=== PATIENT | female | born 1970 | race Caucasian/White ===

== ENCOUNTER 2017-03-28 09:02 | Emergency (ER) | payer MEDICAID, OTHER, SELFPAY ==
[2017-03-28 09:21] VITALS: BP 116/73; TEMP 98.9
[2017-03-28] MEDS ORDERED: Dexamethasone 4 mg/1 ml ONE (09:47)
[2017-03-28 09:57] VITALS: PULSE 85; RESP 18; O2SAT 98
--- NOTE | 2017-03-28 10:12 | C.PDOC ---
History Of Present Illness 47 yr old female presents to the ER with complaints of an allergic reaction for the past 2 days. Patient reports of a itchy rash all over her body. Denies any new environmental exposures, fever, chest pain, SOB, headache, weakness or numbness. Time Seen by Provider: 03/28/17 09:45 Chief Complaint (Nursing): Abnormal Skin Integrity History Per: Patient History/Exam Limitations: no limitations Onset/Duration Of Symptoms: Days (2) Past Medical History Reviewed: Historical Data, Nursing Documentation, Vital Signs Vital Signs: Last Vital Signs Temp 98.9 F 03/28/17 09:18 Pulse 85 03/28/17 09:55 Resp 18 03/28/17 09:55 BP 116/73 03/28/17 09:18 Pulse Ox 98 03/28/17 10:41 Family History: States: No Known Family Hx - Social History Hx Alcohol Use: No Hx Substance Use: No - Immunization History Hx Tetanus Toxoid Vaccination: No Hx Influenza Vaccination: No Hx Pneumococcal Vaccination: No Review Of Systems Except As Marked, All Systems Reviewed And Found Negative. Constitutional: Negative for: Fever Cardiovascular: Negative for: Chest Pain Respiratory: Negative for: Shortness of Breath Skin: Positive for: Rash (Itchy rash all over the body ) Neurological: Negative for: Weakness, Numbness, Headache Physical Exam - Physical Exam Appears: Non-toxic, No Acute Distress Skin: Warm, Dry, Rash (Diffuse urtecaria. ) Head: Atraumatic, Normacephalic Eye(s): bilateral: Normal Inspection, PERRL, EOMI Oral Mucosa: Moist Throat: Normal, No Erythema, No Exudate, No Drooling Chest: Symmetrical, No Tenderness Cardiovascular: Rhythm Regular, No Murmur Respiratory: Normal Breath Sounds, No Rales, No Rhonchi, No Stridor, No Wheezing Extremity: Normal ROM, No Swelling Neurological/Psych: Oriented x3, Normal Speech, Normal Motor ED Course And Treatment O2 Sat by Pulse Oximetry: 98 Medical Decision Making Medical Decision Making: PLAN: * Decadron IM Disposition - Disposition Referrals: Nahun Otero, [Non-Staff] - Disposition: HOME/ ROUTINE Disposition Time: 09:45 Condition: GOOD Additional Instructions: Thank you for letting us take care of you today. Your provider was Dr. Moore. You were treated for a allergic reaction. The emergency medical care you received today was directed at your acute symptoms. If you were prescribed any medication, please fill it and take as directed. It may take several days for your symptoms to resolve. Return to the Emergency Department if your symptoms worsen, do not improve, or if you have any other problems. Please contact your doctor or call one of the physicians/clinics you have been referred to that are listed on the Patient Visit Information form that is included in your discharge packet. Bring any paperwork you were given at discharge with you along with any medications you are taking to your follow up visit. Our treatment cannot replace ongoing medical care by a primary care provider (PCP) outside of the emergency department. Thank you for allowing the [facility] team to be part of your care today. Follow up with your primary doctor in 2-3 days for re-evaluation. Prescriptions: predniSONE [Prednisone] 40 mg PO DAILY #10 tab Instructions: General Allergic Reaction (ED) Forms: Gen Discharge Inst Tajik Print Language: VIETNAMESE - Clinical Impression Clinical Impression: Urticaria - Scribe Statement The provider has reviewed the documentation as recorded by the Gurmeet Hampton Provider Attestation: All medical record entries made by the Gurmeet were at my direction and personally dictated by me. I have reviewed the chart and agree that the record accurately reflects my personal performance of the history, physical exam, medical decision making, and the department course for this patient. I have also personally directed, reviewed, and agree with the discharge instructions and disposition.
== END 2017-03-28 09:58 | disposition home or self-care (01) ==
LOC: C.ER 09:02
DX: L50.9 Urticaria, unspecified (principal)
CPT/HCPCS: 96372; 99283; J1100

== ENCOUNTER 2017-04-01 07:33 | Emergency (ER) | payer OTHER ==
[2017-04-01] MEDS ORDERED: DiphenhydrAMINE 50 mg/ml Inj IVP STA (08:08)
[2017-04-01] MEDS ORDERED: MethylPREDNISolone 40 mg Vial IVP STA (08:08)
[2017-04-01] MEDS ORDERED: Sodium Chloride 0.9% 1,000 ML IV ONE (08:09)
[2017-04-01] MEDS ORDERED: DiphenhydrAMINE 50 mg/ml Inj ONE (08:26)
[2017-04-01] MEDS ORDERED: Sodium Chloride 0.9% 1,000 ML ONE (08:27)
[2017-04-01] MEDS ORDERED: MethylPREDNISolone 40 mg Vial ONE (08:27)
--- NOTE | 2017-04-01 09:11 | C.PDOC ---
History Of Present Illness 47-year-old female, presents to the emergency department with complaints of five -day duration of an itchy rash, diffusely all over body. Patient seen in ED four days ago and given Rx for Prednisone, which she took with relief. Pt states that symptoms returned last night, associated with an itchy throat and questionable shortness of breath, resulting in her coming to the ED for re- evaluation. Denies nausea/vomiting, fevers, chills, chest pain, or any other associated symptoms. No other complaints at this time. Time Seen by Provider: 04/01/17 07:45 Chief Complaint (Nursing): Allergic Reaction History Per: Patient History/Exam Limitations: no limitations Onset/Duration Of Symptoms: Days Current Symptoms Are (Timing): Still Present Associated Symptoms: Skin Rash, Itching (throat) Past Medical History Reviewed: Historical Data, Nursing Documentation, Vital Signs Vital Signs: Last Vital Signs Temp 99.1 F 04/01/17 10:58 Pulse 85 04/01/17 10:58 Resp 23 04/01/17 10:58 BP 132/87 04/01/17 10:58 Pulse Ox 99 04/01/17 10:58 Family History: States: No Known Family Hx - Social History Hx Alcohol Use: No Hx Substance Use: No - Immunization History Hx Tetanus Toxoid Vaccination: No Hx Influenza Vaccination: No Hx Pneumococcal Vaccination: No Review Of Systems Except As Marked, All Systems Reviewed And Found Negative. Constitutional: Negative for: Fever, Chills ENT: Positive for: Other (throat irritation) Respiratory: Positive for: Shortness of Breath (?) Musculoskeletal: Negative for: Back Pain Skin: Positive for: Rash (diffusely to body) Neurological: Negative for: Headache, Dizziness Physical Exam - Physical Exam Appears: Non-toxic, No Acute Distress Skin: Warm, Dry, Rash (diffuse urticarial rash.) Head: Atraumatic, Normacephalic Eye(s): bilateral: Normal Inspection, PERRL Nose: Normal Oral Mucosa: Moist Lips: Normal Appearing Throat: No Erythema, No Exudate, No Drooling, Other (swelling. Uvula midline w/ no abnormalitis.) Cardiovascular: Rhythm Regular, No Murmur Respiratory: Normal Breath Sounds, No Accessory Muscle Use Extremity: Normal ROM Neurological/Psych: Oriented x3 ED Course And Treatment O2 Sat by Pulse Oximetry: 98 Medical Decision Making Medical Decision Making: Prior Visits Notes and records from previous visits were reviewed. Patient seen in ED on for similar complaint. On the first re-exam, the patient reports that the itching and rash improved but still feels "funny" in the throat. Pulse ox remains 99% on RA and there is no swelling in the ORal pharynx, tongue, or lips. The patient was examined by Dr. Desouza who agrees that the patient is improving and does not require admission or observation at this time. Will discharge On second re-exam, the patient reports improvement of symptoms. BP improved. Lungs are CTA, heart is RRR, abdomen is soft, non-tender and patient is tolerating PO well. Ambulatory in the ED with steady gait. Follow up with the medical doctor within 1-2 days. Return if worsened. Disposition - Disposition Referrals: Shai Stallings MD [Staff Provider] - Disposition: HOME/ ROUTINE Disposition Time: 10:30 Condition: GOOD Additional Instructions: Follow up with the medical doctor within 1-2 days without fail. You may need an fiscal accounting clerk referral. Return if worsened Prescriptions: DiphenhydrAMINE [Benadryl] 25 mg PO Q4H PRN #30 cap PRN Reason: Itching / Pruritus Epinephrine [Epipen Auto-Injector] 0.3 mg MR ONCE PRN #1 ml PRN Reason: Anaphylaxis Famotidine [Pepcid] 20 mg PO BID #20 tab predniSONE [Prednisone] 20 mg PO BID #10 tab Instructions: Urticaria (ED) - Clinical Impression Clinical Impression: Allergic urticaria - PA / ANDROID ARCHITECT / Resident Statement MD/DO has reviewed & agrees with the documentation as recorded. - Scribe Statement The provider has reviewed the documentation as recorded by the Scribe (Avery Peguero) All medical record entries made by the Scribe were at my direction and personally dictated by me. I have reviewed the chart and agree that the record accurately reflects my personal performance of the history, physical exam, medical decision making, and the department course for this patient. I have also personally directed, reviewed, and agree with the discharge instructions and disposition.
[2017-04-01 10:59] VITALS: BP 132/87; PULSE 85; RESP 23; TEMP 99.1
[2017-04-02 18:16] VITALS: O2SAT 98
== END 2017-04-01 11:20 | disposition home or self-care (01) ==
LOC: C.ER 07:33
DX: L50.0 Allergic urticaria (principal)
CPT/HCPCS: 96361; 96374; 96375; 99284; J1200; J2920; J7040

== ENCOUNTER 2017-04-05 08:48 | Emergency (ER) | payer OTHER ==
[2017-04-05] MEDS ORDERED: DiphenhydrAMINE 50 mg/ml Inj ONE (09:04)
[2017-04-05] MEDS ORDERED: Albuterol 0.083% Inhal Sol (2.5 mg/3 mL) UD ONE (09:09)
--- NOTE | 2017-04-05 09:11 | C.PDOC ---
History Of Present Illness 47 Y/O FEMALE C/O RECURRENT ALLERGIC REACTION SINCE EARLIER TODAY, GENERALIZED ITCHINESS AND HIVES, ASSOCIATED SOB. PT STATES THIS IS THE THIRD EPISODE SINCE . NOTES ON BOTH PRIOR ER VISITS, SHE HAD DONE 5 DAYS OF STEROIDS. LAST SEEN ON 04/01, PRESENTS TODAY FOLLOWING 3 DAYS OF STEROID TREATMENT. DENIES FEVER, CHILLS, INTRAORAL SWELLING, NAUSEA, VOMITING, CHEST PAIN. 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 Time Seen by Provider: 04/05/17 09:10 Chief Complaint (Nursing): Allergic Reaction History Per: Patient History/Exam Limitations: no limitations Onset/Duration Of Symptoms: Days Current Symptoms Are (Timing): Still Present Associated Symptoms: Skin Rash, Itching. denies: Swelling, Dizziness, Chest Pain Home/EMS Treatment: Benadryl Recent travel outside of the [place]: No Past Medical History Reviewed: Historical Data, Nursing Documentation, Vital Signs Vital Signs: Last Vital Signs Temp 98.2 F 04/05/17 08:52 Pulse 92 H 04/05/17 10:08 Resp 20 04/05/17 10:08 BP 126/79 04/05/17 10:08 Pulse Ox 100 04/05/17 10:08 - Medical History PMH: No Chronic Diseases Family History: States: Unknown Family Hx - Social History Hx Alcohol Use: No Hx Substance Use: No - Immunization History Hx Tetanus Toxoid Vaccination: No Hx Influenza Vaccination: No Hx Pneumococcal Vaccination: No Review Of Systems Except As Marked, All Systems Reviewed And Found Negative. Constitutional: Negative for: Fever, Chills Cardiovascular: Negative for: Chest Pain, Palpitations Respiratory: Positive for: Shortness of Breath. Negative for: Cough Gastrointestinal: Negative for: Nausea, Vomiting, Abdominal Pain Skin: Positive for: Rash Neurological: Negative for: Headache, Dizziness Physical Exam - Physical Exam Appears: Non-toxic, Other (ANXIOUS, SPEAKING FULL SENTENCES, ANXIOUS APPEARING) Skin: Warm, Dry, Rash (GENERALIZED HIVES.) Head: Atraumatic, Normacephalic Eye(s): bilateral: Normal Inspection, PERRL, EOMI Oral Mucosa: Moist Tongue: No Swelling Lips: No Swelling Throat: No Erythema, No Exudate, Other (NO ANGIOEDEMA) Neck: Normal ROM, Supple Chest: Symmetrical Cardiovascular: Rhythm Regular, No Murmur Respiratory: No Rales, No Rhonchi, No Stridor, No Wheezing, Other (TACHYPNEIC, RETRACTING, LUNGS CLEAR) Gastrointestinal/Abdominal: Soft, No Tenderness, No Guarding, No Rebound Back: Normal Inspection Extremity: Normal ROM, Capillary Refill (< 2 SEC.) Neurological/Psych: Oriented x3, Normal Speech, Normal Cognition ED Course And Treatment O2 Sat by Pulse Oximetry: 100 (RA) Pulse Ox Interpretation: Normal - Radiology CXR: Interpreted by Me CXR Interpretation: Yes: No Acute Disease. No: Infiltrates Progress - Re-Evaluation Re-evaluation Note: 04/05/17 09:20 CXR, LABS, IV FLUIDS, BENADRYL, PREDNISONE, PEPCID ORDERED 04/05/17 12:46 FEELS BETTER. HIVES SIG IMPROVE COMPARED TO INITIAL. NO SOB, NARD. VSS. 04/05/17 12:46 PENDING PMD FU 04/08. ADVISED POSSIBLE NEED TO SEE AN HEAD OF INSIGHT - Data Reviewed Data Reviewed: Old records Disposition Counseled Patient/Family Regarding: Diagnosis, Need For Followup, Rx Given - Disposition Referrals: YOUR,PMD [Other] Disposition: HOME/ ROUTINE Disposition Time: 12:47 Condition: IMPROVED Prescriptions: Methylprednisolone [Medrol] 4 mg PO DAILY #1 packet predniSONE [Prednisone] 60 mg PO DAILY #12 tab Instructions: Urticaria (ED) Print Language: PORTUGUESE - Clinical Impression Clinical Impression: Allergic urticaria - Scribe Statement The provider has reviewed the documentation as recorded by the Gurmeet CALDWELL Provider Attestation: All medical record entries made by the Gurmeet were at my direction and personally dictated by me. I have reviewed the chart and agree that the record accurately reflects my personal performance of the history, physical exam, medical decision making, and the department course for this patient. I have also personally directed, reviewed, and agree with the discharge instructions and disposition.
[2017-04-05] MEDS ORDERED: DiphenhydrAMINE 50 mg/ml Inj IVP STA (09:13)
[2017-04-05] MEDS ORDERED: Sodium Chloride 0.9% 500 ML IV ONE (09:14)
[2017-04-05] MEDS ORDERED: Sodium Chloride 0.9% 1,000 ML ONE (09:17)
--- NOTE | 2017-04-05 09:56 | RAD ---
PROCEDURE: CHEST RADIOGRAPH, 1 VIEW HISTORY: Shortness of breath. COMPARISON: None available. FINDINGS: LUNGS: Clear. PLEURA: No pneumothorax or pleural fluid seen. CARDIOVASCULAR: Normal. OSSEOUS STRUCTURES: No significant abnormalities. VISUALIZED UPPER ABDOMEN: Normal. OTHER FINDINGS: None. IMPRESSION: No active disease.
[2017-04-05 13:11] VITALS: BP 120/75; PULSE 84; RESP 18; TEMP 98.3; O2SAT 97
== END 2017-04-05 13:11 | disposition home or self-care (01) ==
LOC: C.ER 08:48
DX: L50.0 Allergic urticaria (principal)
CPT/HCPCS: 71010; 96374; 96375; 99284; J1200; J2930; J7040